=== PATIENT | male | born 1990 | race Caucasian/White ===

== ENCOUNTER 2024-01-09 12:16 | Emergency (ER) | payer BC | END 2024-01-09 13:30 | disposition home or self-care (01) | LOC: MW.ED 12:16 | DX: H66.93 Otitis media, unspecified, bilateral (principal); Z88.1 Allergy status to other antibiotic agents | CPT/HCPCS: 99282; 99283 ==

== ENCOUNTER 2024-01-28 20:15 | Emergency (ER) | payer BC ==
[2024-01-28] MEDS: Sodium Chloride 0.9% 1,000 ML IV ONE (20:58)
[2024-01-28] MEDS: Ondansetron 4 MG/2 ML SDV IVPUSH ONE (20:58)
[2024-01-28 21:07] LABS: HEMOGLOBIN 16.3 g/dL (14.0-18.0); MEAN CORPUSCULAR HEMOGLOBIN 31.8 pg (28.0-32.0); MEAN CORPUSCULAR HGB CONC 36.2 g/dL (32.0-36.0); MEAN CORPUSCULAR VOLUME 87.7 fL (83.0-99.0); MEAN PLATELET VOLUME 9.1 fL (9.4-12.4); PLATELET COUNT,PLT 269 K/uL (150-400); RED BLOOD CELL COUNT 5.13 M/uL (4.52-5.90); WHITE BLOOD CELL COUNT,WBC 13.89 K/uL (3.9-11.3)
[2024-01-28 21:31] LABS: A/G RATIO 0.8 (0.9-1.6); ALBUMIN 3.8 g/dL (3.4-5.0); BILIRUBIN TOTAL 1.6 mg/dL (0.2-1.0); CALCIUM 9.5 mg/dL (8.5-10.1); CARBON DIOXIDE,CO2 26.4 mmol/L (21.0-32.0); CREATININE 1.1 mg/dL (0.8-1.3); EST CRCL DRUG DOSING (CG) 81.53 mL/min; POTASSIUM,K 3.5 mmol/L (3.5-5.1); PROTEIN TOTAL,TP 8.4 g/dL (6.4-8.2)
[2024-01-28 21:40] LABS: LYMPHOCYTES ABSOLUTE MAN 0.83 K/uL (1.00-4.80); LYMPHOCYTES PERCENT MAN 6 % (24-44); MONOCYTES ABSOLUTE MAN 1.39 K/uL (0.00-0.80); MONOCYTES PERCENT MAN 10 % (0-8); SEG NEUTROPHILS ABSOLUTE MAN 11.67 K/uL (1.80-7.70); SEG NEUTROPHILS PERCENT MAN 84 % (41-71)
[2024-01-28] MEDS: Morphine 4 MG/ML Syringe IVPUSH ONE (21:47)
[2024-01-28 22:44] LABS: APPEARANCE,URINE CLEAR; BILIRUBIN,URINE NEGATIVE (NEGATIVE); COLOR,URINE YELLOW; GLUCOSE,URINE NEGATIVE (NEGATIVE); KETONES,URINE 40 mg/dL (NEGATIVE); LEUKOCYTE ESTERASE,URINE NEGATIVE (NEGATIVE); NITRITE,URINE NEGATIVE (NEGATIVE); OCCULT BLOOD,URINE NEGATIVE (NEGATIVE); PROTEIN,URINE NEGATIVE (NEGATIVE); UROBILINOGEN,URINE 0.2 EU/dL (<2.0)
[2024-01-28] MEDS: Acetaminophen/oxyCODONE 325-5 MG Tab PO ONE (23:18)
== END 2024-01-28 23:23 | disposition home or self-care (01) ==
LOC: MW.ED 20:15
DX: K80.20 Calculus of gallbladder without cholecystitis without obstruction (principal); Z79.899 Other long term (current) drug therapy; Z88.1 Allergy status to other antibiotic agents
CPT/HCPCS: 36415; 76705; 80053; 81003; 83690; 85025; 96361; 96374; 96375; 99284; A9270; J2270; J2405; J7030

== ENCOUNTER 2024-02-08 08:47 | Inpatient (IN) | payer BC ==
[~2024-02-08 08:47] MED LIST: Albuterol 0.083% 2.5 MG/3 ML Neb Soln NEB PRN; Bupivacaine 0.5% 30 ML SDV ONE; Metoclopramide 10 MG/2 ML SDV IVPUSH PRN; Naloxone 0.4 MG/ML SDV IVPUSH PRN; Ondansetron 4 MG/2 ML SDV IVPUSH PRN; Ropivacaine 0.5% 5 MG/ML 30 ML SDV ONE; Water For Injection, Sterile 40 ML ONE; droPERidol 5 MG/2 ML SDV IVPUSH PRN
[2024-02-08] MEDS ORDERED: Propofol 200 MG/20 ML SDV ONE (08:59)
[2024-02-08] MEDS ORDERED: fentaNYL 100 MCG/2 ML SDV ONE (08:59)
[2024-02-08] MEDS ORDERED: Rocuronium Bromide 50 MG/5 ML Syringe ONE ×2 (09:00→10:09)
[2024-02-08] MEDS ORDERED: dexmedeTOMIDine HCl 200 MCG/2 ML SDV ONE (09:00)
[2024-02-08] MEDS: Lactated Ringers 1,000 ML IV SCH (09:33)
[2024-02-08] MEDS ORDERED: ceFAZolin 2 GM Vial ONE (09:46)
[2024-02-08] MEDS ORDERED: Indocyanine Green 25 MG SDV ONE (09:47)
[2024-02-08] MEDS ORDERED: Ondansetron 4 MG/2 ML SDV ONE (09:54)
[2024-02-08] MEDS ORDERED: Dexamethasone 4 MG/ML 5 ML MDV ONE (09:54)
[2024-02-08] MEDS ORDERED: Magnesium Sulfate (4.06 MEQ/ML) 5 GM/10 ML SDV ONE (09:59)
[2024-02-08] MEDS ORDERED: Ketamine 500 mg/10 ML MDV ONE (10:28)
[2024-02-08] MEDS ORDERED: ePHEDrine 50 MG/ML SDV ONE (10:38)
[2024-02-08] MEDS ORDERED: HYDROmorphone 2 MG/ML Syringe ONE (11:24)
[2024-02-08] MEDS ORDERED: Sugammadex Sodium 200 MG/2 ML VIAL IV ONE (11:42)
[2024-02-08] MEDS ORDERED: Ketorolac 30 MG/ML SDV ONE (11:42)
[2024-02-08] MEDS ORDERED: Lactated Ringers 1,000 ML IV SCH (12:30)
[2024-02-08] MEDS ORDERED: Ondansetron 4 MG/2 ML SDV IVPUSH PRN (12:35)
[2024-02-08] MEDS: fentaNYL 50 MCG/ML SDV IVPUSH PRN (12:58)
[2024-02-08] MEDS: HYDROmorphone 1 MG/ML Syringe IVPUSH PRN (13:00)
[2024-02-08] MEDS: Acetaminophen/HYDROcodone 325-5 MG Tab PO PRN (13:39)
[2024-02-08] MEDS: Morphine 4 MG/ML Syringe IVPUSH PRN (15:18)
[2024-02-08] MEDS: ceFAZolin 2 GM in Sodium Chloride 0.9% 50 ML IV ONE (16:24)
[2024-02-08] MEDS: Morphine 2 MG/ML SYRINGE IVPUSH PRN (23:53)
== END 2024-02-10 15:35 | disposition home or self-care (01) | DRG 263 ==
LOC: MW.SDS 08:47 → MW.MS 13:10
PROVIDERS: ADMIT Surgery; ATTEND Surgery
PROC: 0FJ44ZZ Inspection of Gallbladder, Percutaneous Endoscopic Approach (ICD-10-PCS; 2024-02-08)
PROC: 0FT40ZZ Resection of Gallbladder, Open Approach (ICD-10-PCS; principal; 2024-02-08 10:15)
DX: K80.00 Calculus of gallbladder with acute cholecystitis without obstruction (principal); E66.01 Morbid (severe) obesity due to excess calories; Z88.1 Allergy status to other antibiotic agents; Z79.899 Other long term (current) drug therapy; Z68.41 Body mass index [BMI] 40.0-44.9, adult
CPT/HCPCS: 64488; A9270-GY; J0131; J0665; J0690; J1100; J1170; J1885; J2270; J2405; J2704; J2795; J3010; J3475; J3490; J7120